=== PATIENT | female | born 1980 | race African-American/Black ===

== ENCOUNTER 2019-11-24 22:13 | Emergency (ER) | payer BC ==
[~2019-11-24] VITALS: Ht 170.2 cm; Wt 83.5 kg
[2019-11-24 22:27] VITALS: BP 177/110
--- NOTE | 2019-11-24 22:30 | NUR ---
ED Nurse Note: ERMD at bedside
--- NOTE | 2019-11-24 22:34 | Emergency Room Report ---
History of Present Illness General Chief Complaint: Upper Extremity Injury Source: Patient Present Illness HPI This is a 39-year-old female who is right-hand dominant. She presents with chief plan of right thumb pain. She said she was horse playing and got her thumb bent backward. She says she heard a crack. This occurred an hour ago. Pain is to the base of the right thumb and radiate all the way up. Worse with movement. Better with rest. Pain is 9 out of 10. No other injury. She denies any domestic violence issue. 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 COVID-19 Screening: Negative COVID-19 COVID-19 Testing Source: [facility] Patient History Past Medical History: see triage record, old chart reviewed, HTN Past Surgical History: none Pertinent Family History: none Social History: Denies: smoking Last Menstrual Period: october 2019 Now: No Immunizations: other Reviewed Nursing Documentation: PMH: Agreed; PSxH: Agreed Nursing Documentation-PMH Past Medical History: No History, Except For Hx Hypertension: Yes Review of Systems Eye: Denies: eye pain, blurred vision ENT: Denies: ear pain, nose congestion, throat swelling Respiratory: Denies: cough, shortness of breath Cardiovascular: Denies: chest pain, palpitations Gastrointestinal: Denies: abdominal pain, diarrhea, nausea, vomiting Musculoskeletal: Reports: joint pain; Denies: back pain Skin: Denies: rash Neurological: Denies: headache, numbness Endocrine: Denies: increased thirst, increased urine Hematologic/Lymphatic: Denies: easy bruising All Other Systems: negative except mentioned in HPI Physical Exam Vital Signs Date Time Temp Pulse Resp B/P (MAP) Pulse Ox O2 Delivery O2 Flow Rate FiO2 11/24/19 22:17 98.1 60 18 177/110 (132) 96 Room Air Vitals with high blood pressure Sp02 EP Interpretation: reviewed, normal General Appearance: well appearing, no apparent distress, alert Head: normocephalic, atraumatic Eyes: bilateral eye PERRL, bilateral eye EOMI ENT: hearing grossly normal, normal pharynx Neck: full range of motion, supple, no meningismus Respiratory: chest non-tender, lungs clear, normal breath sounds Cardiovascular #1: regular rate, rhythm, no murmur Gastrointestinal: normal bowel sounds, non tender, no mass, no organomegaly, no bruit, non-distended Musculoskeletal: back normal, gait/station normal, other - Right thumb: Tenderness to the base of the thumb. Decreased range of motion secondary to pain. Sensation normal. Capillary refill less than 2 seconds. Wrist nontender. Psychiatric: mood/affect normal Procedures Splinting Splinting : Consent: Verbal Location: rt thumb Pre-Made Type: velcro Splint: thumb spica Pre-Proc Neuro Vasc Exam: normal Post-Proc Neuro Vasc Exam: normal Patient Tolerated: Well Complications: None Medical Decision Making Diagnostic Impression: Primary Impression: Sprain of hand, thumb, right Qualified Codes: S63.641A - Sprain of metacarpophalangeal joint of right thumb, initial encounter ER Course Patient presents with a right thumb injury. Most likely ligament injury. No evidence of any fracture. May have a dislocation that spontaneously reduced. Patient splinted. Will discharge home. Other X-Ray Diagnostic Results Other X-Ray Diagnostic Results : X-Ray ordered: Right thumb x-rays # of Views/Limited Vs Complete: 3 View Indication: Pain EP Interpretation: Yes Interpretation: no dislocation, no soft tissue swelling, no fractures Impression: No acute disease Electronically Signed by: Omer Piña MD Last Vital Signs Date Time Temp Pulse Resp B/P (MAP) Pulse Ox O2 Delivery O2 Flow Rate FiO2 11/24/19 22:17 98.1 60 18 177/110 (132) 96 Room Air Status: improved Disposition: HOME, SELF-CARE Condition: Stable Scripts Ibuprofen* (MOTRIN*) 600 Mg Tablet 600 MG ORAL Q6H PRN for For Pain, #30 TAB 0 Refills Prov: Omer Piña MD 11/24/19 Hydrocodone/Acetaminophen 5-325* (HYDROCODONE/ACETAMINOPHEN 5-325*) 1 Each Tablet 1 TAB ORAL Q6H PRN for For Pain, #20 TAB 0 Refills Prov: Omer Piña MD 11/24/19 Additional Instructions: Elevate hand. Ice pack to the thumb. Follow-up with In 7 days. If still continues have pain, may need repeat x-rays or MRI. Return if worse. Omer Piña MD Nov 24, 2019 22:34
--- NOTE | 2019-11-24 22:37 | NUR ---
ED Nurse Note: ERMD at bedside
--- NOTE | 2019-11-24 22:42 | NUR ---
ED Nurse Note: XRAY at bedside
[2019-11-24] MEDS ORDERED: HYDROcodone/Acetamin 5/325 tab ORAL ONE (22:45)
--- NOTE | 2019-11-24 22:45 | NUR ---
ED Nurse Note: thumb spica applied, pt tolerated well no ss of distress noted. no numbness or tingling noted.
[2019-11-24] MEDS ORDERED: HYDROCODON-ACE1 EA15 ORAL (22:46)
[2019-11-24] MEDS ORDERED: IBUPROFEN600 M1 ORAL (22:46)
--- NOTE | 2019-11-24 22:49 | Diagnostic Imaging Report ---
EXAM: XR Right Fingers, 2 or More Views CLINICAL HISTORY: TRAUMA TECHNIQUE: Frontal, lateral and oblique views of the fingers of the right hand. COMPARISON: No relevant prior studies available. FINDINGS: Bones/joints: Unremarkable. No acute fracture. No dislocation. Soft tissues: Unremarkable. No radiopaque foreign body. IMPRESSION: No acute osseous abnormality.
[2019-11-24 22:53] VITALS: BP 139/91
--- NOTE | 2019-11-24 22:53 | NUR ---
ER DISCHARGE NOTE: Patient is cleared to be discharged home with thumb spica per ERMD, pt is aox4, 99% on room air, with stable vital signs. pt was given dc and prescription instructions, pt was able to verbalize understanding, pt id band removed without complications. pt is able to ambulate with steady gait. pt took all belongings.
== END 2019-11-24 22:53 | disposition home or self-care (01) ==
LOC: EMR 22:45
DX: S63.641A Sprain of metacarpophalangeal joint of right thumb, initial encounter (principal); Y93.83 Activity, rough housing and horseplay; Z88.8 Allergy status to other drugs, medicaments and biological substances; I10 Essential (primary) hypertension
CPT/HCPCS: 29130; 99283